=== PATIENT | female | born 1955 | race Caucasian/White ===

== ENCOUNTER 2025-01-07 05:57 | Day surgery (SDC) | payer OTHER, BC ==
[2025-01-02 13:38] VITALS: BMI 24.3
[2025-01-07] MEDS ORDERED: POVIDONE-IODINE 5% OPHTHALMIC PREP 30 ML SOLUTION ONE (07:11)
[2025-01-07] MEDS ORDERED: BUPIVACAINE HCL/PF 0.5% (5MG/ML) 10 ML VIAL ONE (07:11)
[2025-01-07] MEDS ORDERED: TETRACAINE 0.5% OPHTH SOLN 2 ML BOTTLE ONE (07:11)
[2025-01-07] MEDS ORDERED: ERYTHROMYCIN 0.5% OPHTHALMIC OINTMENT 3.5 GM TUBE ONE (07:11)
[2025-01-07] MEDS ORDERED: LIDOCAINE 1%/EPI 1:100000 (20 ML MULTI DOSE VIAL) ONE (07:12)
[2025-01-07] MEDS ORDERED: MIDAZOLAM HCL 2 MG/2 ML SINGLE DOSE VIAL ONE (07:43)
[2025-01-07] MEDS ORDERED: PROPOFOL 20 ML ONE ×3 (07:43→08:30)
[2025-01-07] MEDS ORDERED: SUCCINYLCHOLINE CHLORIDE 200 MG/10 ML SYRINGE ONE (08:05)
[2025-01-07] MEDS ORDERED: ACETAMINOPHEN 1000 MG/100 ML BAG IVPB PRN (08:52)
[2025-01-07] MEDS ORDERED: ONDANSETRON 4 MG/2 ML VIAL IVPUSH PRN (08:52)
[2025-01-07] MEDS ORDERED: LACTATED RINGERS SOLUTION 1,000 ML IV SCH (09:00)
[2025-01-07 10:22] VITALS: BP 96/56
[2025-01-07 10:26] VITALS: PULSE 72; RESP 18; TEMP 97.3
== END 2025-01-07 10:34 | disposition home or self-care (01) ==
LOC: FASU 05:57
PROVIDERS: ATTEND Ophthalmology
PROC: 08SQXZZ Reposition Right Lower Eyelid, External Approach (ICD-10-PCS; principal; 2025-01-07 08:04)
DX: H02.002 Unspecified entropion of right lower eyelid (principal)
CPT/HCPCS: 94760